=== PATIENT | male | born 1945 | race Caucasian/White ===

== ENCOUNTER 2019-08-29 11:28 | Emergency (ER) | payer OTHER ==
[~2019-08-29] VITALS: Ht 172.7 cm; Wt 124.7 kg
[2019-08-29 11:58] LABS: BASOPHILS ABSOLUTE AUTO 0.02 K/mm3 (0.00-0.23); BASOPHILS PERCENT AUTO 1 % (0-2); EOSINOPHILS ABSOLUTE AUTO 0.06 K/mm3 (0.00-0.68); EOSINOPHILS PERCENT AUTO 2 % (0-6); Hematocrit 37.9 % (37.0-53.0); Hemoglobin 12.5 g/dL (13.5-17.5); IMMATURE GRAN ABSOLUTE AUTO 0.01 K/mm3 (0.00-0.10); IMMATURE GRAN PERCENT AUTO 0 % (0-1); LYMPHOCYTES ABSOLUTE AUTO 0.19 K/mm3 (0.84-5.20); LYMPHOCYTES PERCENT AUTO 5 % (21-46); MONOCYTES ABSOLUTE AUTO 0.44 K/mm3 (0.16-1.47); MONOCYTES PERCENT AUTO 11 % (4-13); Mean Corpuscular HGB 30.3 pg (26.0-34.0); Mean Corpuscular Volume 92 fL (80-100); Mean Platelet Volume 8.5 fL (9.1-12.4); NEUTROPHILS ABSOLUTE AUTO 3.41 K/mm3 (1.96-9.15); NEUTROPHILS PERCENT AUTO 83 % (41-73); Platelet Count 194 K/mm3 (150-400); RDW Coefficient Variation 13.4 % (11.7-14.2); Red Blood Cell Count 4.13 M/mm3 (4.30-5.90); White Blood Cell Count 4.13 K/mm3 (4.00-11.30)
[2019-08-29 12:21] LABS: Anion Gap 8 mmol/L (6-16); Blood Urea Nitrogen 31 mg/dL (8-24); Bun/Creatinine Ratio 28.7 (12.0-20.0); CO2, Blood 24 mmol/L (21-32); Calcium, Blood 9.1 mg/dL (8.5-10.1); Chloride, Blood 107 mmol/L (98-108); Creatinine, Blood 1.08 mg/dL (0.60-1.20); Glomerular Filtration Rate >60 (60-); Glucose, Blood 104 mg/dL (70-99); Potassium, Blood 4.2 mmol/L (3.5-5.5); Sodium, Blood 139 mmol/L (136-145); Troponin I <0.015 ng/mL (0.000-0.040)
[2019-08-29 13:26] LABS: Source, Urine Clean Catch
[2019-08-29 13:38] LABS: Bilirubin, Urine Neg (Neg); Blood, Urine Neg (Neg); Glucose Qualitative, Urine Neg (Neg); Ketones, Urine Neg (Neg); Leukocyte Esterase, Urine Neg (Neg); Nitrite, Urine Neg (Neg); Protein, Urine Neg (Neg); Specific Gravity, Urine 1.025 (1.003-1.022); Urobilinogen, Urine NORM (Normal)
[2019-08-29 13:43] LABS: Appearance, Urine Clear (Clear); Color, Urine Yellow (P-Yellow)
== END 2019-08-29 14:47 | disposition home or self-care (01) ==
LOC: ER 11:28
PROVIDERS: Emergency Medicine
DX: E86.0 Dehydration (principal); C61 Malignant neoplasm of prostate; R19.7 Diarrhea, unspecified; R55 Syncope and collapse; Z87.891 Personal history of nicotine dependence
CPT/HCPCS: 74022; 80048; 81003; 84484; 85025; 93005; 93010; 96360; 96361; 99285-25; J7030

== ENCOUNTER 2022-01-02 06:06 | Day surgery (SDC) | payer OTHER ==
[~2022-01-02] VITALS: Ht 172.7 cm; Wt 142.1 kg
[2022-01-02] MEDS ORDERED: THERA-D2000 UNIT PO (07:03)
[2022-01-02] MEDS ORDERED: TAMS.4ER PO (07:04)
[2022-01-02] MEDS ORDERED: NAPR500 PO (07:04)
[2022-01-02] MEDS ORDERED: Robaxin750 MG PO (07:05)
[2022-01-02 15:08] LABS: Performing Lab MI PROFILE; Test Name FLOWCYTOMETRY
== END 2022-01-02 09:36 | disposition home or self-care (01) ==
LOC: ORSCSDS 06:06
PROVIDERS: Surgery
PROC: 07B60ZX Excision of Left Axillary Lymphatic, Open Approach, Diagnostic (ICD-10-PCS; principal; 2022-01-02 07:30)
DX: C77.0 Secondary and unspecified malignant neoplasm of lymph nodes of head, face and neck (principal); C61 Malignant neoplasm of prostate; I10 Essential (primary) hypertension; J44.9 Chronic obstructive pulmonary disease, unspecified; G47.33 Obstructive sleep apnea (adult) (pediatric); Z87.891 Personal history of nicotine dependence; F43.10 Post-traumatic stress disorder, unspecified; Z79.899 Other long term (current) drug therapy; E66.01 Morbid (severe) obesity due to excess calories; Z68.42 Body mass index [BMI] 45.0-49.9, adult
CPT/HCPCS: 88184; 88185; 88305; 88341; 88342; A9270; J0330; J1100; J1885; J2310; J2405; J2704; J3010

== ENCOUNTER → 2022-09-14 | Outpatient (CLI) | payer OTHER ==
[~2022-09-14] MED LIST: NAPR500 PO; Robaxin750 MG PO; TAMS.4ER PO; THERA-D2000 UNIT PO
[2022-09-14 12:51] LABS: Source, Urine Clean Catch
[2022-09-14 13:21] LABS: Appearance, Urine Cloudy (Clear); Bilirubin, Urine Neg (Neg); Blood, Urine 4+ (Neg); Color, Urine Yellow (P-Yellow); Glucose Qualitative, Urine Neg (Neg); Ketones, Urine Neg (Neg); Leukocyte Esterase, Urine 3+ (Neg); Nitrite, Urine Pos (Neg); Protein, Urine 3+ (Neg); Urobilinogen, Urine NORM (Normal)
[2022-09-14 13:41] LABS: White Blood Cells, Urine TNTC /hpf (0-5)
[2022-09-14 13:42] LABS: Squamous Epithelial Cells Rare /hpf (Few)
[2022-09-14 13:43] LABS: Bacteria Many /hpf
== END | disposition home or self-care (01) ==
LOC: LAB 12:17 → LAB SHORT 12:17
PROVIDERS: Radiology Therapeutic Radiology
DX: C61 Malignant neoplasm of prostate (principal)
CPT/HCPCS: 81001; 87086

== ENCOUNTER → 2023-05-02 | Outpatient (CLI) | payer OTHER | END | disposition home or self-care (01) | LOC: LAB 12:30 → LAB SHORT 12:30 → EDSTATUS 05-02 11:10 → LAB FUT 05-02 11:10 | DX: R19.7 Diarrhea, unspecified (principal) | CPT/HCPCS: 87338 ==

== ENCOUNTER 2023-07-13 22:39 | Inpatient (IN) | payer OTHER ==
[~2023-07-13] VITALS: Ht 172.7 cm; Wt 112.1 kg
[~2023-07-13 22:39] MED LIST changes: +CEFP200 PO; +CEPH500 PO; +ONDA4ODT MM
[2023-07-13 23:37] LABS: BASOPHILS ABSOLUTE AUTO 0.02 K/mm3 (0.00-0.23); BASOPHILS PERCENT AUTO 0 % (0-2); EOSINOPHILS PERCENT AUTO 0 % (0-6); Hematocrit 31.4 % (37.0-53.0); Hemoglobin 10.6 g/dL (13.5-17.5); IMMATURE GRAN ABSOLUTE AUTO 0.04 K/mm3 (0.00-0.10); IMMATURE GRAN PERCENT AUTO 0 % (0-1); LYMPHOCYTES ABSOLUTE AUTO 0.34 K/mm3 (0.84-5.20); LYMPHOCYTES PERCENT AUTO 3 % (21-46); MONOCYTES ABSOLUTE AUTO 0.55 K/mm3 (0.16-1.47); MONOCYTES PERCENT AUTO 5 % (4-13); Mean Corpuscular HGB Conc 33.8 g/dL (31.5-36.5); Mean Corpuscular Volume 86 fL (80-100); NEUTROPHILS ABSOLUTE AUTO 9.67 K/mm3 (1.96-9.15); NEUTROPHILS PERCENT AUTO 91 % (41-73); Platelet Count 256 K/mm3 (150-400); RDW Coefficient Variation 13.8 % (11.7-14.2); RDW Standard Deviation 43.4 fL (35.1-46.3); Red Blood Cell Count 3.66 M/mm3 (4.30-5.90); White Blood Cell Count 10.62 K/mm3 (4.00-11.30)
[2023-07-13 23:53] LABS: Albumin, Blood 2.3 g/dL (3.4-5.0); Albumin/Globulin Ratio 0.6 (0.8-1.8); Bilirubin, Total 0.4 mg/dL (0.1-1.0); Bun/Creatinine Ratio 11.7 (12.0-20.0); Calcium, Blood 8.2 mg/dL (8.5-10.1); Creatinine, Blood 2.06 mg/dL (0.60-1.20); Globulin, Blood 4.1 g/dL (2.2-4.0); Potassium, Blood 3.8 mmol/L (3.5-5.5); Total Protein, Blood 6.4 g/dL (6.4-8.2)
--- NOTE | 2023-07-14 01:30 | NUR ---
ADMIT NOTE; PT ARRIVES FROM THE ED VIA GURNEY. THE PT IS AXO X4 AND IS ABLE TO STAND AND PIVOT FROM THE GURNEY TO THE HOSPITAL BED W/ A ONE ASSIST. THE PT IS OVERALL WEAK PRESENTLY. THE PT ENDORSES OCCASIONAL BLADDER SPASMS WELL LOWER ABD PAIN BELIEVED TO BE ASSOCIATED W/ THE PT EXPERIENCING FREUQENT EPISODES OF DIARRHEA. THE PT OTHERWISE DENIES ANY PAIN, CHEST PAIN/PRESSURE, SOB OR N/V. THE PT IS ABLE TO REST COMFORTABLY IN BED WITH THE BED IN THE LOWEST POSITION AND THE CALL LIGHT AT BEDSIDE. PT EDUCATED ON POTENTIAL FIRE IGNITION SOURCES, PT DENIES HAVING ANY POSSIBLE FIRE IGNITION SOURCES IN POSSESSION PRESENTLY.
[2023-07-14 01:33] VITALS: BP 115/77
[2023-07-14] MEDS ORDERED: AMIT25 PO (05:10)
[2023-07-14] MEDS ORDERED: ASPI325EC PO (05:13)
[2023-07-14] MEDS ORDERED: ERLEADA60 MG PO (05:13)
[2023-07-14] MEDS ORDERED: CELE200 PO (05:14)
[2023-07-14] MEDS ORDERED: CHOLESTYRAMI239.4 G1 PO (05:15)
[2023-07-14] MEDS ORDERED: LACT PO (05:16)
[2023-07-14] MEDS ORDERED: DICLOFENAC SOD100 G1 TOP (05:16)
[2023-07-14] MEDS ORDERED: LIDO700A20 TOP (05:17)
[2023-07-14 05:21] VITALS: BP 125/87
[2023-07-14] MEDS ORDERED: MAGNESIUM OXID400 M2 PO (05:21)
[2023-07-14] MEDS ORDERED: MEGE40T PO (05:23)
[2023-07-14] MEDS ORDERED: SOLIFENACIN SUC10 MG PO (05:25)
[2023-07-14] MEDS ORDERED: SULFAMETHOXAZO1 EAC1 PO (05:26)
[2023-07-14] MEDS ORDERED: Sanctura20 MG PO (05:27)
--- NOTE | 2023-07-14 05:43 | NUR ---
SHIFT SUMMARY; NO ACUTE CHANGES OVERNIGHT. THE PT IS AXO X4 AND A 1 ASSIST TO BSC. ALTHOUGH PRESENTLY THE PT IS INCONTINENT. THE PT DENIES ANY PAIN PRESENTLY. THE PT ALSO DENIES ANY SOB, CHEST PAIN/PRESSURE OR N/V. THE PT DOES HAVE NS RUNNING AT 75 MLS/HR. CURRENTLY THE PT IS RESTING IN BED WITH THE BED IN THE LOWEST POSITION AND THE CALL LIGHT AT BEDSIDE. FIRE SAFETY MAINTAINED T/O THE NIGHT.
[2023-07-14 08:47] VITALS: BP 114/78
[2023-07-14 09:33] LABS: BASOPHILS ABSOLUTE AUTO 0.01 K/mm3 (0.00-0.23); BASOPHILS PERCENT AUTO 0 % (0-2); EOSINOPHILS PERCENT AUTO 0 % (0-6); Hematocrit 30.1 % (37.0-53.0); Hemoglobin 10.2 g/dL (13.5-17.5); IMMATURE GRAN ABSOLUTE AUTO 0.02 K/mm3 (0.00-0.10); IMMATURE GRAN PERCENT AUTO 0 % (0-1); LYMPHOCYTES ABSOLUTE AUTO 0.25 K/mm3 (0.84-5.20); LYMPHOCYTES PERCENT AUTO 3 % (21-46); MONOCYTES ABSOLUTE AUTO 0.34 K/mm3 (0.16-1.47); MONOCYTES PERCENT AUTO 4 % (4-13); Mean Corpuscular HGB 29.2 pg (26.0-34.0); Mean Corpuscular HGB Conc 33.9 g/dL (31.5-36.5); Mean Corpuscular Volume 86 fL (80-100); Mean Platelet Volume 9.4 fL (9.1-12.4); NEUTROPHILS ABSOLUTE AUTO 7.57 K/mm3 (1.96-9.15); NEUTROPHILS PERCENT AUTO 92 % (41-73); Platelet Count 208 K/mm3 (150-400); RDW Coefficient Variation 13.8 % (11.7-14.2); RDW Standard Deviation 43.6 fL (35.1-46.3); Red Blood Cell Count 3.49 M/mm3 (4.30-5.90); White Blood Cell Count 8.19 K/mm3 (4.00-11.30)
[2023-07-14 09:55] LABS: BAND PERCENT MAN 1 % (0-8); BASOPHILS PERCENT MAN 0 % (0-2); EOSINOPHILS PERCENT MAN 0 % (0-6); LYMPHOCYTES ABSOLUTE MAN 0.32 K/mm3 (0.84-5.20); LYMPHOCYTES PERCENT MAN 4 % (21-46); MONOCYTES ABSOLUTE MAN 0.49 K/mm3 (0.16-1.47); MONOCYTES PERCENT MAN 6 % (4-13); NEUTROPHILS ABSOLUTE MAN 7.37 K/mm3 (1.96-9.15); SEG NEUTROPHILS PERCENT MAN 89 % (41-73); TOTAL CELLS COUNTED 100
[2023-07-14 10:22] LABS: Albumin, Blood 2.3 g/dL (3.4-5.0); Albumin/Globulin Ratio 0.6 (0.8-1.8); Bilirubin, Total 0.4 mg/dL (0.1-1.0); Bun/Creatinine Ratio 11.6 (12.0-20.0); Creatinine, Blood 2.07 mg/dL (0.60-1.20); Globulin, Blood 3.8 g/dL (2.2-4.0); Potassium, Blood 3.4 mmol/L (3.5-5.5); Total Protein, Blood 6.1 g/dL (6.4-8.2)
[2023-07-14 12:41] LABS: Adenovirus F 40/41 Not Detected (NOT DETECT); Astrovirus Not Detected (NOT DETECT); Campylobacter Sp Not Detected (NOT DETECT); Cryptosporidium Not Detected (NOT DETECT); Cyclospora Cayetanensis Not Detected (NOT DETECT); E. Coli O157 Not Detected (NOT DETECT); Entamoeba Histolytica Not Detected (NOT DETECT); Enteroaggregative E. coli-EAEC Not Detected (NOT DETECT); Enteropathogenic E. coli-EPEC Not Detected (NOT DETECT); Enterotoxigenic E. coli-ETEC Not Detected (NOT DETECT); Giardia Lamblia Not Detected (NOT DETECT); Norovirus GI/GII Not Detected (NOT DETECT); Plesiomonas Shigelloides Not Detected (NOT DETECT); Rotavirus A Not Detected (NOT DETECT); Salmonella Sp Not Detected (NOT DETECT); Sapovirus Not Detected (NOT DETECT); Shiga Toxin-prod E. coli-STEC Not Detected (NOT DETECT); Shigella/Enteroin E. coli-EIEC Not Detected (NOT DETECT); Vibrio Cholerae Not Detected (NOT DETECT); Vibrio Sp Not Detected (NOT DETECT); Yersinia Enterocolitica Not Detected (NOT DETECT)
[2023-07-14 15:07] LABS: Bun/Creatinine Ratio 11.4 (12.0-20.0); Calcium, Blood 8.4 mg/dL (8.5-10.1); Creatinine, Blood 2.1 mg/dL (0.60-1.20); Potassium, Blood 3.6 mmol/L (3.5-5.5)
[2023-07-14 15:36] VITALS: BP 145/81
--- NOTE | 2023-07-14 17:48 | NUR ---
SHIFT SUMMARY- FEVER IMPROVED IN AFTERNOON, MEDICATED PER EMAR. INTERMITTED VOMITING PER SHIFT X3, TREATED PER EMAR. DIARRHEA EVERY HOUR, + C-DIFF, CHANGE TO ISO. COMDOM CATH IN PLACE, DRAINING WELL, 700 OUT THIS SHIFT. A&O X4. WILL CONTINUE TO MONITOR. BED ALARMON. CALL LIGHT IN REACH.
[2023-07-14 20:20] VITALS: BP 101/54
[2023-07-15 03:22] VITALS: BP 145/85
--- NOTE | 2023-07-15 04:38 | NUR ---
SHIFT SUMMARY; NO ACUTE CHANGES OVERNIGHT. THE PT HAS BEEN SLEEPING FOR THE MAJORITY OF THE NIGHT. THE PT HAS BEEN BEDREST FOR THE NIGHT. THE PT IS STILL HAVING LOOSE STOOLS, BUT LESS FREQUENT. THE PT HAS A CONDOM CATH IN PLACE, IT IS PATENT AND DRAINING TO GRAVITY. THE PT DENIES ANY CHEST PAIN/PRESSURE, SOB, N/V OR PAIN THIS SHIFT. CURRENTLY THE PT IS SLEEPING IN BED WITH THE BED IN THE LOWEST POSITION AND THE CALL LIGHT AT BEDSIDE. PT REAMINS NPO ORDERED. FIRE SAFETY MAINTAINED T/O THE NIGHT.
[2023-07-15 08:21] LABS: Hematocrit 32.2 % (37.0-53.0); Hemoglobin 10.1 g/dL (13.5-17.5); Mean Corpuscular HGB 28.3 pg (26.0-34.0); Mean Corpuscular HGB Conc 31.4 g/dL (31.5-36.5); Mean Corpuscular Volume 90 fL (80-100); Mean Platelet Volume 9.7 fL (9.1-12.4); Platelet Count 218 K/mm3 (150-400); RDW Standard Deviation 46.5 fL (35.1-46.3); Red Blood Cell Count 3.57 M/mm3 (4.30-5.90); White Blood Cell Count 4.62 K/mm3 (4.00-11.30)
[2023-07-15 08:33] LABS: Bun/Creatinine Ratio 12.3 (12.0-20.0); Calcium, Blood 7.9 mg/dL (8.5-10.1); Creatinine, Blood 1.87 mg/dL (0.60-1.20); Potassium, Blood 3.6 mmol/L (3.5-5.5)
[2023-07-15 08:48] LABS: BAND PERCENT MAN 6 % (0-8); BASOPHILS PERCENT MAN 0 % (0-2); EOSINOPHILS PERCENT MAN 0 % (0-6); LYMPHOCYTES PERCENT MAN 11 % (21-46); METAMYELOCYTE ABSOLUTE MAN 0.04 K/mm3 (0.00-0.00); METAMYELOCYTE PERCENT MAN 1 % (0-0); MONOCYTES ABSOLUTE MAN 0.13 K/mm3 (0.16-1.47); MONOCYTES PERCENT MAN 3 % (4-13); NEUTROPHILS ABSOLUTE MAN 3.92 K/mm3 (1.96-9.15); SEG NEUTROPHILS PERCENT MAN 79 % (41-73); TOTAL CELLS COUNTED 100
[2023-07-15 08:59] VITALS: BP 139/89
--- NOTE | 2023-07-15 11:33 | NUR ---
REQUEST SHEET FAXED TO [facility] FOR CT RECORDS PER DR. GERMAIN @[id number]
[2023-07-15 14:54] VITALS: BP 113/73
--- NOTE | 2023-07-15 19:50 | NUR ---
SHIFT SUMMARY: PT A&O X4. PT PLEASANT AND COOPERATIVE WITH CARE. PT REMAINS TO HAVE RUNNY DIARRHEA BUT IS BEGINNING TO BECOME FORMED. BANANA FLAKES TOLERATED. NS GIVEN PER EMAR. PT BROUGHT HOME MEDICATIONS. CANCER MED GIVEN AND LABELED. CONDOM CATH WORKING WELL WITH NEW IN PLACE. [facility] FAXED TO REQUEST [facility] PER DR. GERMAIN. NO FAX TO THIS HOSPITAL AT THIS TIME. NPO CHANGED TO REGULAR DIET THIS AM. PT VERY APPRECIATIVE. CALL LIGHT IN REACH. BED IN LOWEST POSITION. REPORT GIVEN TO ONCOMING RN.
[2023-07-15 20:10] VITALS: BP 123/83
--- NOTE | 2023-07-16 04:10 | NUR ---
SHIFT SUMMARY PATIENT ALERT, PLEASANT, COOPERATIVE. DENIES PAIN NOR DISCOMFORT. PIV TO LEFT AC, PATENT, INFUSING NS@125mL/HR. CONDOM CATH IN PLACE, DRAINING CLEAR YELLOW URINE. HAD SOFT, FORMED BM. NO ACUTE CHANGES NOTED OVERNIGHT. BED IN LOW POSITION, CALL LIGHT WITHIN REACH.
[2023-07-16 05:36] VITALS: BP 130/86
[2023-07-16 07:15] VITALS: BP 126/78
[2023-07-16 08:05] LABS: Hematocrit 29.8 % (37.0-53.0); Hemoglobin 9.5 g/dL (13.5-17.5); Mean Corpuscular HGB 28.3 pg (26.0-34.0); Mean Corpuscular HGB Conc 31.9 g/dL (31.5-36.5); Mean Corpuscular Volume 89 fL (80-100); Mean Platelet Volume 9.2 fL (9.1-12.4); Platelet Count 195 K/mm3 (150-400); RDW Coefficient Variation 14.1 % (11.7-14.2); RDW Standard Deviation 45.6 fL (35.1-46.3); Red Blood Cell Count 3.36 M/mm3 (4.30-5.90); White Blood Cell Count 4.06 K/mm3 (4.00-11.30)
[2023-07-16 08:26] LABS: BAND PERCENT MAN 5 % (0-8); BASOPHILS PERCENT MAN 0 % (0-2); EOSINOPHILS PERCENT MAN 0 % (0-6); LYMPHOCYTES ABSOLUTE MAN 0.16 K/mm3 (0.84-5.20); LYMPHOCYTES PERCENT MAN 4 % (21-46); METAMYELOCYTE ABSOLUTE MAN 0.16 K/mm3 (0.00-0.00); METAMYELOCYTE PERCENT MAN 4 % (0-0); MONOCYTES ABSOLUTE MAN 0.16 K/mm3 (0.16-1.47); MONOCYTES PERCENT MAN 4 % (4-13); NEUTROPHILS ABSOLUTE MAN 3.57 K/mm3 (1.96-9.15); SEG NEUTROPHILS PERCENT MAN 83 % (41-73); TOTAL CELLS COUNTED 100
[2023-07-16 08:29] LABS: Anion Gap 7 mmol/L (6-16); Blood Urea Nitrogen 19 mg/dL (8-24); Bun/Creatinine Ratio 11.9 (12.0-20.0); CO2, Blood 20 mmol/L (21-32); Calcium, Blood 7.9 mg/dL (8.5-10.1); Chloride, Blood 116 mmol/L (98-108); Glomerular Filtration Rate 44 (60-); Glucose, Blood 113 mg/dL (70-99); Phosphorus, Blood 2.6 mg/dL (2.5-4.9); Potassium, Blood 3.2 mmol/L (3.5-5.5); Sodium, Blood 143 mmol/L (136-145)
[2023-07-16 15:19] VITALS: BP 131/89
--- NOTE | 2023-07-16 17:30 | NUR ---
PT DISCHARGE REVIEWED WITH PT AND SPOUSE. HE VERBALIZED UNDERSTANDING MEDS AND INST. NO TELE. IV REMOVED BY AIDE. PT WHEELED TO DOOR BY AIDE AT 1730
== END 2023-07-16 17:31 | disposition home health service (06) | DRG 872 ==
LOC: ER 22:39 → MEDS 23:46
PROVIDERS: Family Medicine; Internal Medicine; Student in an Organized Health Care Education/Training Program; ADMIT Internal Medicine
PROC: 3E03329 Introduction of Other Anti-infective into Peripheral Vein, Percutaneous Approach (ICD-10-PCS; principal; 2023-07-14)
PROC: 0T9B70Z Drainage of Bladder with Drainage Device, Via Natural or Artificial Opening (ICD-10-PCS; 2023-07-14)
DX: A41.9 Sepsis, unspecified organism (principal); N13.6 Pyonephrosis; N17.9 Acute kidney failure, unspecified; N18.2 Chronic kidney disease, stage 2 (mild); I12.9 Hypertensive chronic kidney disease with stage 1 through stage 4 chronic kidney disease, or unspecified chronic kidney disease; E78.5 Hyperlipidemia, unspecified; M54.50 Low back pain, unspecified; E86.0 Dehydration; G47.30 Sleep apnea, unspecified; F43.10 Post-traumatic stress disorder, unspecified; J44.9 Chronic obstructive pulmonary disease, unspecified; N32.89 Other specified disorders of bladder; M19.90 Unspecified osteoarthritis, unspecified site; Z85.46 Personal history of malignant neoplasm of prostate; Z79.899 Other long term (current) drug therapy; Z86.19 Personal history of other infectious and parasitic diseases
CPT/HCPCS: 36415; 76770; 80048; 80053; 80069; 83605; 83880; 85025; 87040; 87324; 87507; 96374; 96375; 97112; 97116; 97161; 99285-25; A9270; J0696; J1644; J2405; J3010; J3480; J7030

== ENCOUNTER 2023-09-01 13:28 | Inpatient (IN) | payer OTHER ==
[~2023-09-01] VITALS: Ht 172.7 cm; Wt 107.9 kg
[~2023-09-01 13:28] MED LIST changes: +AMIT25 PO; +ASPI325EC PO; +CELE200 PO; +CHOLESTYRAMI239.4 G1 PO; +DICLOFENAC SOD100 G1 TOP; +ERLEADA60 MG PO; +LACT PO; +LIDO700A20 TOP; +MAGNESIUM OXID400 M2 PO; +MEGE40T PO; +SOLIFENACIN SUC10 MG PO; +SULFAMETHOXAZO1 EAC1 PO; +Sanctura20 MG PO
[2023-09-01 15:42] LABS: Source, Urine Foley catheter
[2023-09-01 16:07] LABS: Appearance, Urine Cloudy (Clear); Bilirubin, Urine Neg (Neg); Blood, Urine 5+ (Neg); Color, Urine Amber (P-Yellow); Glucose Qualitative, Urine Neg (Neg); Ketones, Urine Neg (Neg); Leukocyte Esterase, Urine 3+ (Neg); Nitrite, Urine Pos (Neg); Protein, Urine 3+ (Neg); Specific Gravity, Urine 1.015 (1.003-1.022); Urobilinogen, Urine NORM (Normal)
[2023-09-01 16:13] LABS: Bun/Creatinine Ratio 12.3 (12.0-20.0); Calcium, Blood 9.6 mg/dL (8.5-10.1); Creatinine, Blood 3.97 mg/dL (0.60-1.20); Magnesium, Blood 2.6 mg/dL (1.6-2.4)
[2023-09-01 16:35] LABS: White Blood Cells, Urine TNTC /hpf (0-5)
[2023-09-01 16:36] LABS: Bacteria Many /hpf; Red Blood Cells, Urine 50-100 /hpf (0-2)
[2023-09-01 16:39] LABS: Squamous Epithelial Cells Not Seen /hpf (Few)
[2023-09-01 19:17] VITALS: BP 112/97
[2023-09-02 05:13] VITALS: BP 119/80
[2023-09-02 06:06] LABS: Bun/Creatinine Ratio 12.1 (12.0-20.0); Creatinine, Blood 4.29 mg/dL (0.60-1.20); Potassium, Blood 5.1 mmol/L (3.5-5.5)
--- NOTE | 2023-09-02 06:18 | NUR ---
PT CAME TO FLOOR ON IV FLUIDS AND WITH A GARCIA CATHETER THAT WAS INSERTED IN THE ED. PT HAS A HX OF URINARY RETENTION AND PROSTATE CANCER. A CAUDE CATHETER WAS USED TO INSERT THE CATHETER IN THE ED. PT DOES HAVE URINE THAT LEAKS AROUND HIS CATHETER AND HIS URINE HAS MAINTAINED A TEA COLOR THROUGHOUT THE SHIFT, EVEN WITH PO INTAKE OF WATER AND LR RUNNING THROUGH THE PT'S IV. PT WAS NAUSEOUS WHEN HE CAME TO THE FLOOR, BUT THIS RESOLVED WITH ZOFRAN. PT STATES HE HAS A HX OF FALLING AND REPORTS SOME WEAKNESS IN HIS BLE.
[2023-09-02 07:41] VITALS: BP 110/86
--- NOTE | 2023-09-02 11:33 | NUR ---
"Spiritual Care | Pt. request Pt. is awake in bed and welcomes my visit. Spouse is present. Facilitated a lengthy life review at times considered matters of thao and belief. 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 Pt. is unsettled by his diagnosis but displays evidence of trusting God in spite of his circumstances. Pt. verbalized gratitude for the spiritual care visit and welcomed this deck steward to return."
[2023-09-02] MEDS ORDERED: MEGE40T PO (11:41)
[2023-09-02] MEDS ORDERED: AMIT25 PO (11:41)
[2023-09-02 14:46] VITALS: BP 117/87
--- NOTE | 2023-09-02 17:59 | NUR ---
SUMMARY PT SAT UP IN CHAIR THIS AM. HAS RESTED IN BED SINCE MID SHIFT, REPOSITIONING SELF. PT BECAME NAUSEATED AND HAD MULTIPLE EPISODES EMESIS. MEDICATED PER ORDERS. HAS NOT HAD EMESIS FOR PAST TWO HOURS. DECLINED DINNER TRAY. IV FLUIDS INFUSING PER ORDERS. PT'S GARCIA PRODUCING CLOUDY HUEY URINE. CALL LIGHT IN REACH.
[2023-09-02 19:33] VITALS: BP 138/91
--- NOTE | 2023-09-03 05:28 | NUR ---
SHIFT SUMMARY NOC. PT A/OX4 THIS SHIFT. PT TOLERATED PO INTAKE OF JELLO. NO VOMITING OR NAUSEA THIS SHIFT. PT ON TELEMETRY AND WAS NSR. GARCIA CATHETER IS INTACT, DRAINING TO GRAVITY AND BELOW GRAVITY. PT RESTED WELL THROUGHOUT THE NIGHT WITH EYES CLOSED AND CALL LIGHT IN REACH.
[2023-09-03 05:29] VITALS: BP 133/82
[2023-09-03 07:09] VITALS: BP 119/77
[2023-09-03 08:30] LABS: Bun/Creatinine Ratio 12.2 (12.0-20.0); Calcium, Blood 9.1 mg/dL (8.5-10.1); Creatinine, Blood 3.68 mg/dL (0.60-1.20); Potassium, Blood 4.5 mmol/L (3.5-5.5)
[2023-09-03] MEDS ORDERED: TAMS.4ER PO (10:20)
[2023-09-03] MEDS ORDERED: CEFU250T47 PO (10:20)
[2023-09-03] MEDS ORDERED: Sanctura20 MG PO (10:20)
--- NOTE | 2023-09-03 10:46 | NUR ---
DISCHARGE NOTE: PATIENT AND PATIENTS WERE EDUCATED ON DISCHARGE INSTRUCTIONS. BOTH VERBALIZED UNDERSTANDING OF INSTRUCTIONS AND HAD NO FURTHER QUESTIONS AT THIS TIME. PATIENTS PERSCRIPTIONS WERE FAXED TO THE [facility] PER PATIENTS REQUEST. IV WAS TAKEN OUT AND WNL. PATIENT WAS ALSO EDUCATED ON GARCIA CLEANING/MANAGEMENT WITH PRINTOUT EDUCATION. PATIENT VERBALIZED UNDERSTANDING OF GARCIA EDUCATION. GARCIA IS DRAINING PER GRAVITY WITH YELLOW URINE OUTPUT. PATIENT IS TOLERATING PO INTAKE. ALSO EDUCATED PATIENT ON A RENAL DIET FOR AT HOME WITH EDUCATION PRINTOUT. PATIENT AND VERBALIZED UNDERSTANDING OF EDUCATION WELL. PATIENT IS DRESSED AND HAS PERSONAL ITEMS IN THE ROOM GATHERED. PATIENT WAS ABLE TO AMBULATE TO THE WHEELCHAIR INDEP. PATIENT WAS WHEELCHAIRED OUT TO HIS WIFES CAR TO BE TAKEN HOME.
== END 2023-09-03 10:51 | disposition home or self-care (01) | DRG 683 ==
LOC: ER 13:28 → SURS 13:29 → ERHOLD 13:29 → ER 16:05 → SURS 18:50
PROVIDERS: Emergency Medicine; ADMIT Internal Medicine
PROC: 0T9B70Z Drainage of Bladder with Drainage Device, Via Natural or Artificial Opening (ICD-10-PCS; principal; 2023-09-02)
DX: N17.9 Acute kidney failure, unspecified (principal); N39.0 Urinary tract infection, site not specified; N18.30 Chronic kidney disease, stage 3 unspecified; E78.5 Hyperlipidemia, unspecified; E87.5 Hyperkalemia; B96.20 Unspecified Escherichia coli [E. coli] as the cause of diseases classified elsewhere; M54.50 Low back pain, unspecified; G89.29 Other chronic pain; F43.10 Post-traumatic stress disorder, unspecified; G47.33 Obstructive sleep apnea (adult) (pediatric); M19.90 Unspecified osteoarthritis, unspecified site; N13.30 Unspecified hydronephrosis; R33.9 Retention of urine, unspecified; Z87.891 Personal history of nicotine dependence; Z88.5 Allergy status to narcotic agent; Z88.8 Allergy status to other drugs, medicaments and biological substances; Z91.041 Radiographic dye allergy status; Z79.899 Other long term (current) drug therapy; Z85.46 Personal history of malignant neoplasm of prostate; Z79.82 Long term (current) use of aspirin; Z98.890 Other specified postprocedural states
CPT/HCPCS: 36415; 51702; 76770; 80048; 81001; 83735; 87077; 87086; 87186; 93005; 93010; 96361; 96361-59; 96365; 96372; 96374-59; 96375-59; 96376; 99285-25; A9270; G0378; J0696; J1644; J2405; J2765; J7030; J7120

== ENCOUNTER → 2023-09-17 | Outpatient (CLI) | payer OTHER ==
[~2023-09-17] MED LIST changes: +CEFU250T47 PO
[2023-09-17 19:47] LABS: Creatinine Urine 40.9 mg/dL (27.00-270.00); Microalbumin, Urine Quant. 62.4 mg/L (0.000-20.000); Protein, Urine Quantitative 28.1 mg/dL (0.0-11.9)
== END | disposition home or self-care (01) ==
LOC: LAB SHORT 09:30 → LAB 09:30
PROVIDERS: Internal Medicine Nephrology
DX: N18.30 Chronic kidney disease, stage 3 unspecified (principal); D63.1 Anemia in chronic kidney disease; N25.81 Secondary hyperparathyroidism of renal origin; E55.9 Vitamin D deficiency, unspecified; E78.00 Pure hypercholesterolemia, unspecified; D51.8 Other vitamin B12 deficiency anemias; D52.8 Other folate deficiency anemias; D50.9 Iron deficiency anemia, unspecified; E83.51 Hypocalcemia; R76.9 Abnormal immunological finding in serum, unspecified; R94.5 Abnormal results of liver function studies; R94.6 Abnormal results of thyroid function studies
CPT/HCPCS: 81050; 82043; 82570; 84156

== ENCOUNTER → 2023-10-05 | Outpatient (CLI) | payer OTHER | END | disposition home or self-care (01) | LOC: LAB 12:00 → LAB SHORT 12:00 | DX: N39.0 Urinary tract infection, site not specified (principal) | CPT/HCPCS: 87077; 87086; 87186 ==

== ENCOUNTER 2023-10-18 09:14 | Emergency (ER) | payer OTHER ==
[~2023-10-18] VITALS: Ht 172.7 cm; Wt 108.9 kg
[2023-10-18 10:15] LABS: BASOPHILS ABSOLUTE AUTO 0.02 K/mm3 (0.00-0.23); BASOPHILS PERCENT AUTO 1 % (0-2); EOSINOPHILS ABSOLUTE AUTO 0.24 K/mm3 (0.00-0.68); EOSINOPHILS PERCENT AUTO 5 % (0-6); Hematocrit 37.5 % (37.0-53.0); Hemoglobin 12.4 g/dL (13.5-17.5); IMMATURE GRAN PERCENT AUTO 0 % (0-1); LYMPHOCYTES ABSOLUTE AUTO 0.93 K/mm3 (0.84-5.20); LYMPHOCYTES PERCENT AUTO 21 % (21-46); MONOCYTES PERCENT AUTO 9 % (4-13); Mean Corpuscular HGB 29.9 pg (26.0-34.0); Mean Corpuscular HGB Conc 33.1 g/dL (31.5-36.5); Mean Corpuscular Volume 90 fL (80-100); Mean Platelet Volume 8.5 fL (9.1-12.4); NEUTROPHILS ABSOLUTE AUTO 2.84 K/mm3 (1.96-9.15); NEUTROPHILS PERCENT AUTO 64 % (41-73); Platelet Count 344 K/mm3 (150-400); RDW Coefficient Variation 14.2 % (11.7-14.2); Red Blood Cell Count 4.15 M/mm3 (4.30-5.90); White Blood Cell Count 4.43 K/mm3 (4.00-11.30)
[2023-10-18 10:26] LABS: Source, Urine Foley catheter
[2023-10-18 10:40] LABS: Appearance, Urine Bloody (Clear); Bilirubin, Urine Neg (Neg); Blood, Urine 5+ (Neg); Color, Urine Red (P-Yellow); Glucose Qualitative, Urine Neg (Neg); Ketones, Urine Neg (Neg); Leukocyte Esterase, Urine Neg (Neg); Nitrite, Urine Neg (Neg); Protein, Urine 4+ (Neg); Urobilinogen, Urine NORM (Normal); pH, Urine 6.5 (5.0-8.0)
[2023-10-18 10:45] LABS: Albumin, Blood 3.3 g/dL (3.4-5.0); Albumin/Globulin Ratio 0.8 (0.8-1.8); Bilirubin, Total 0.2 mg/dL (0.1-1.0); Bun/Creatinine Ratio 15.3 (12.0-20.0); Calcium, Blood 9.4 mg/dL (8.5-10.1); Creatinine, Blood 1.7 mg/dL (0.60-1.20); Globulin, Blood 4.3 g/dL (2.2-4.0); Potassium, Blood 4.2 mmol/L (3.5-5.5); Total Protein, Blood 7.6 g/dL (6.4-8.2)
[2023-10-18 10:53] LABS: Red Blood Cells, Urine TNTC /hpf (0-2); Squamous Epithelial Cells Rare /hpf (Few)
[2023-10-18 10:54] LABS: Bacteria Few /hpf
[2023-10-18 12:30] VITALS: BP 118/78
== END 2023-10-18 12:30 | disposition home or self-care (01) ==
LOC: ER 09:14
PROVIDERS: Emergency Medicine
DX: T83.83XA Hemorrhage due to genitourinary prosthetic devices, implants and grafts, initial encounter (principal); C61 Malignant neoplasm of prostate; I12.9 Hypertensive chronic kidney disease with stage 1 through stage 4 chronic kidney disease, or unspecified chronic kidney disease; N18.9 Chronic kidney disease, unspecified; E78.5 Hyperlipidemia, unspecified; J44.9 Chronic obstructive pulmonary disease, unspecified; G47.33 Obstructive sleep apnea (adult) (pediatric); M19.90 Unspecified osteoarthritis, unspecified site; F43.10 Post-traumatic stress disorder, unspecified; Z87.891 Personal history of nicotine dependence; Z79.82 Long term (current) use of aspirin; Z79.899 Other long term (current) drug therapy
CPT/HCPCS: 51702; 69200; 80053; 81001; 85025; 87086; 99283-25

== ENCOUNTER → 2023-10-29 | Outpatient (CLI) | payer OTHER ==
[2023-10-29 14:18] LABS: Source, Urine Clean Catch
[2023-10-29 18:17] LABS: Appearance, Urine Hazy (Clear); Bilirubin, Urine Neg (Neg); Blood, Urine 5+ (Neg); Color, Urine Yellow (P-Yellow); Glucose Qualitative, Urine 1+ (Neg); Ketones, Urine Neg (Neg); Leukocyte Esterase, Urine 3+ (Neg); Nitrite, Urine Neg (Neg); Protein, Urine 2+ (Neg); Specific Gravity, Urine 1.015 (1.003-1.022); Urobilinogen, Urine NORM (Normal)
[2023-10-29 19:21] LABS: Red Blood Cells, Urine TNTC /hpf (0-2)
[2023-10-29 19:22] LABS: Bacteria Mod /hpf; Squamous Epithelial Cells Not Seen /hpf (Few)
== END ==
LOC: LAB SHORT 14:16 → LAB 14:16
PROVIDERS: Urology Female Pelvic Medicine and Reconstructive Surgery
DX: N39.0 Urinary tract infection, site not specified (principal)
CPT/HCPCS: 81001; 87086

== ENCOUNTER 2024-12-17 17:08 | Emergency (ER) | payer OTHER ==
[~2024-12-17] VITALS: Ht 170.2 cm; Wt 114.3 kg
[~2024-12-17 17:08] MED LIST changes: +CAPSAICIN60 G1 TOP; +Diazepam5 MG PO; +FOLI1 PO; +HYDACE10B PO; +HYDROCODONE-AC1 EA19 PO; +SODBIC650 PO; +Voltaren100 GM TOP
[2024-12-17 17:39] LABS: BASOPHILS ABSOLUTE AUTO 0.03 K/mm3 (0.00-0.23); BASOPHILS PERCENT AUTO 0 % (0-2); EOSINOPHILS ABSOLUTE AUTO 0.22 K/mm3 (0.00-0.68); EOSINOPHILS PERCENT AUTO 2 % (0-6); Hematocrit 41.5 % (37.0-53.0); Hemoglobin 13.4 g/dL (13.5-17.5); IMMATURE GRAN ABSOLUTE AUTO 0.03 K/mm3 (0.00-0.10); IMMATURE GRAN PERCENT AUTO 0 % (0-1); LYMPHOCYTES ABSOLUTE AUTO 0.78 K/mm3 (0.84-5.20); LYMPHOCYTES PERCENT AUTO 7 % (21-46); MONOCYTES ABSOLUTE AUTO 0.63 K/mm3 (0.16-1.47); MONOCYTES PERCENT AUTO 6 % (4-13); Mean Corpuscular HGB 28.6 pg (26.0-34.0); Mean Corpuscular HGB Conc 32.3 g/dL (31.5-36.5); Mean Corpuscular Volume 89 fL (80-100); Mean Platelet Volume 8.6 fL (9.1-12.4); NEUTROPHILS ABSOLUTE AUTO 8.96 K/mm3 (1.96-9.15); NEUTROPHILS PERCENT AUTO 84 % (41-73); Platelet Count 350 K/mm3 (150-400); RDW Coefficient Variation 14.6 % (11.7-14.2); Red Blood Cell Count 4.69 M/mm3 (4.30-5.90); White Blood Cell Count 10.65 K/mm3 (4.00-11.30)
[2024-12-17 18:00] LABS: Albumin, Blood 3.3 g/dL (3.4-5.0); Albumin/Globulin Ratio 0.7 (0.8-1.8); Bilirubin, Total 0.5 mg/dL (0.1-1.0); Bun/Creatinine Ratio 11.6 (12.0-20.0); Creatinine, Blood 1.73 mg/dL (0.60-1.20); Globulin, Blood 4.6 g/dL (2.2-4.0); Potassium, Blood 4.2 mmol/L (3.5-5.5); Total Protein, Blood 7.9 g/dL (6.4-8.2)
[2024-12-17] MEDS ORDERED: Metoclopramide HCl 5MG / ML 2ML Vial IV ONE (18:15)
[2024-12-17] MEDS ORDERED: Ketorolac Tromethamine 15mg Vial IV ONE (18:15)
[2024-12-17] MEDS ORDERED: Lactated Ringer's 1,000 ML IV ONE (18:15)
[2024-12-17 18:41] LABS: Source, Urine Clean Catch
[2024-12-17] MEDS ORDERED: Norco 10-325 T1 EACH PO (18:41)
[2024-12-17] MEDS ORDERED: Methocarbamol750 MG PO (18:42)
[2024-12-17] MEDS ORDERED: DIAZ2 PO (18:42)
[2024-12-17 18:43] LABS: Appearance, Urine Hazy (Clear); Bilirubin, Urine Neg (Neg); Blood, Urine 5+ (Neg); Glucose Qualitative, Urine Neg (Neg); Ketones, Urine Neg (Neg); Leukocyte Esterase, Urine 3+ (Neg); Nitrite, Urine Neg (Neg); Protein, Urine 4+ (Neg); Specific Gravity, Urine 1.005 (1.003-1.022); Urobilinogen, Urine NORM (Normal)
[2024-12-17] MEDS ORDERED: CYCL10 (18:43)
[2024-12-17 18:55] LABS: Color, Urine Amber (P-Yellow)
[2024-12-17 18:56] LABS: Bacteria Many /hpf; Mucus Light (0-Heavy); Squamous Epithelial Cells Rare /hpf (Few); White Blood Cells, Urine TNTC /hpf (0-5)
[2024-12-17 18:57] LABS: Granular Casts 0-2 /lpf (0); WBC Cast 0-2 /lpf (0)
[2024-12-17] MEDS ORDERED: CefTRIAXone Sodium 1,000 MG in NS 100 ML IV ONE (19:00)
[2024-12-17] MEDS ORDERED: CEPH500 PO (20:01)
[2024-12-17 20:45] VITALS: BP 123/82
== END 2024-12-17 20:46 | disposition home or self-care (01) ==
LOC: ER 17:08
PROVIDERS: Student in an Organized Health Care Education/Training Program
DX: N30.00 Acute cystitis without hematuria (principal); R10.32 Left lower quadrant pain; E03.9 Hypothyroidism, unspecified; F43.10 Post-traumatic stress disorder, unspecified; Z93.6 Other artificial openings of urinary tract status; Z79.82 Long term (current) use of aspirin; Z79.899 Other long term (current) drug therapy
CPT/HCPCS: 74177; 80053; 81001; 83690; 85025; 87086; 96374-59; 96375; 99284-25; J0696; J1885; J2765; J7120; Q9967

== ENCOUNTER 2025-06-09 09:33 | Emergency (ER) | payer OTHER ==
[~2025-06-09] VITALS: Ht 170.2 cm; Wt 105.7 kg
[~2025-06-09 09:33] MED LIST changes: +CYCL10; +DIAZ2 PO; +Methocarbamol750 MG PO; +Norco 10-325 T1 EACH PO
[2025-06-09] MEDS ORDERED: HYDROmorphone HCl/Pf 1MG SYR IV ONE ×2 (10:10→12:30)
[2025-06-09] MEDS ORDERED: Ondansetron HCl 2 MG / ML 2ML Vial IV ONE (10:10)
[2025-06-09] MEDS ORDERED: NS 1,000 ML IV SCH ×3 (10:10→15:40)
[2025-06-09 10:33] LABS: BASOPHILS ABSOLUTE AUTO 0.02 K/mm3 (0.00-0.23); BASOPHILS PERCENT AUTO 0 % (0-2); EOSINOPHILS ABSOLUTE AUTO 0.04 K/mm3 (0.00-0.68); EOSINOPHILS PERCENT AUTO 0 % (0-6); Hematocrit 35.9 % (37.0-53.0); Hemoglobin 11.2 g/dL (13.5-17.5); IMMATURE GRAN ABSOLUTE AUTO 0.05 K/mm3 (0.00-0.10); IMMATURE GRAN PERCENT AUTO 1 % (0-1); LYMPHOCYTES ABSOLUTE AUTO 0.45 K/mm3 (0.84-5.20); LYMPHOCYTES PERCENT AUTO 4 % (21-46); MONOCYTES ABSOLUTE AUTO 0.51 K/mm3 (0.16-1.47); MONOCYTES PERCENT AUTO 5 % (4-13); Mean Corpuscular HGB Conc 31.2 g/dL (31.5-36.5); Mean Corpuscular Volume 94 fL (80-100); NEUTROPHILS ABSOLUTE AUTO 9.97 K/mm3 (1.96-9.15); NEUTROPHILS PERCENT AUTO 90 % (41-73); NRBC ABSOLUTE 0.00 K/mm3 (0.00-0.02); NRBC Auto 0.0 /100 WBC (0.0-0.2); Platelet Count 357 K/mm3 (150-400); RDW Coefficient Variation 13.8 % (11.7-14.2); RDW Standard Deviation 46.5 fL (35.1-46.3)
[2025-06-09 10:44] LABS: Alanine Aminotransfer (ALT/SGP 11.0 U/L (12-78); Albumin, Blood 2.5 g/dL (3.4-5.0); Albumin/Globulin Ratio 0.5 (0.8-1.8); Anion Gap 13.0 mmol/L (3-11); Aspartate Aminotrans (AST/SGOT 13.0 U/L (12-37); Bilirubin, Total 0.4 mg/dL (0.1-1.0); Blood Urea Nitrogen 26.0 mg/dL (8-24); CO2, Blood 17.0 mmol/L (21-32); Calcium, Blood 9.0 mg/dL (8.5-10.1); Chloride, Blood 106.0 mmol/L (98-108); Creatinine, Blood 2.08 mg/dL (0.60-1.20); Globulin, Blood 5.5 g/dL (2.2-4.0); Glucose, Blood 170.0 mg/dL (70-99); Potassium, Blood 3.9 mmol/L (3.5-5.5); Sodium, Blood 132.0 mmol/L (136-145); Total Protein, Blood 8.0 g/dL (6.4-8.2)
[2025-06-09 15:57] LABS: Campylobacter Sp Not Detected (NOT DETECT); E. Coli O157 Not Detected (NOT DETECT); Enteroaggregative E. coli-EAEC Not Detected (NOT DETECT); Enteropathogenic E. coli-EPEC Not Detected (NOT DETECT); Enterotoxigenic E. coli-ETEC Not Detected (NOT DETECT); Salmonella Sp Not Detected (NOT DETECT); Shiga Toxin-prod E. coli-STEC Not Detected (NOT DETECT); Shigella/Enteroin E. coli-EIEC Not Detected (NOT DETECT); Vibrio Sp Not Detected (NOT DETECT)
[2025-06-09] MEDS ORDERED: OLANZAPINE2.5 M1 PO (16:13)
[2025-06-09 16:45] VITALS: BP 120/74
[2025-06-17] MEDS ORDERED: AMOCLA875 PO (13:21)
[2025-06-17] MEDS ORDERED: CEFD300 PO (13:21)
== END 2025-06-09 16:51 | disposition home or self-care (01) ==
LOC: ER 09:33
PROVIDERS: Student in an Organized Health Care Education/Training Program
DX: K52.9 Noninfective gastroenteritis and colitis, unspecified (principal); Z79.899 Other long term (current) drug therapy; Z79.2 Long term (current) use of antibiotics; M19.90 Unspecified osteoarthritis, unspecified site; F43.10 Post-traumatic stress disorder, unspecified
CPT/HCPCS: 74177; 80053; 83690; 85025; 87507; 93005; 93010; 96361; 96374-59; 96375; 96376; 99285-25; A9270; J1171; J2405; J7030; Q9967

== ENCOUNTER 2025-06-11 09:53 | Emergency (ER) | payer OTHER ==
[~2025-06-11] VITALS: Ht 170.2 cm; Wt 103.0 kg
[~2025-06-11 09:53] MED LIST changes: +OLANZAPINE2.5 M1 PO
[2025-06-11 10:33] LABS: BASOPHILS ABSOLUTE AUTO 0.01 K/mm3 (0.00-0.23); BASOPHILS PERCENT AUTO 0 % (0-2); EOSINOPHILS ABSOLUTE AUTO 0.05 K/mm3 (0.00-0.68); EOSINOPHILS PERCENT AUTO 1 % (0-6); Hematocrit 33.8 % (37.0-53.0); Hemoglobin 10.7 g/dL (13.5-17.5); IMMATURE GRAN ABSOLUTE AUTO 0.02 K/mm3 (0.00-0.10); IMMATURE GRAN PERCENT AUTO 0 % (0-1); LYMPHOCYTES ABSOLUTE AUTO 0.56 K/mm3 (0.84-5.20); LYMPHOCYTES PERCENT AUTO 10 % (21-46); MONOCYTES ABSOLUTE AUTO 0.44 K/mm3 (0.16-1.47); MONOCYTES PERCENT AUTO 8 % (4-13); Mean Corpuscular HGB Conc 31.7 g/dL (31.5-36.5); Mean Corpuscular Volume 92 fL (80-100); NEUTROPHILS ABSOLUTE AUTO 4.45 K/mm3 (1.96-9.15); NEUTROPHILS PERCENT AUTO 80 % (41-73); NRBC ABSOLUTE 0.00 K/mm3 (0.00-0.02); NRBC Auto 0.0 /100 WBC (0.0-0.2); Platelet Count 427 K/mm3 (150-400); RDW Coefficient Variation 14.2 % (11.7-14.2); RDW Standard Deviation 47.8 fL (35.1-46.3)
[2025-06-11] MEDS ORDERED: Ondansetron HCl 2 MG / ML 2ML Vial IV ONE (10:50)
[2025-06-11 10:52] LABS: Prothrombin Time Results 13.2 Sec (9.7-11.5)
[2025-06-11 11:19] LABS: Alanine Aminotransfer (ALT/SGP 13.0 U/L (12-78); Albumin, Blood 2.7 g/dL (3.4-5.0); Albumin/Globulin Ratio 0.6 (0.8-1.8); Anion Gap 10.0 mmol/L (3-11); Aspartate Aminotrans (AST/SGOT 10.0 U/L (12-37); Bilirubin, Total 0.3 mg/dL (0.1-1.0); Blood Urea Nitrogen 26.0 mg/dL (8-24); CO2, Blood 21.0 mmol/L (21-32); Calcium, Blood 9.4 mg/dL (8.5-10.1); Chloride, Blood 106.0 mmol/L (98-108); Creatinine, Blood 2.34 mg/dL (0.60-1.20); Globulin, Blood 4.9 g/dL (2.2-4.0); Glucose, Blood 162.0 mg/dL (70-99); Potassium, Blood 3.2 mmol/L (3.5-5.5); Sodium, Blood 134.0 mmol/L (136-145); Total Protein, Blood 7.6 g/dL (6.4-8.2)
[2025-06-11 13:36] LABS: Source, Urine Foley catheter
[2025-06-11 13:39] LABS: Bilirubin, Urine Neg (Neg); Color, Urine Yellow (P-Yellow); Glucose Qualitative, Urine Neg (Neg); Ketones, Urine Neg (Neg); Leukocyte Esterase, Urine 3+ (Neg); Protein, Urine 3+ (Neg); Specific Gravity, Urine 1.015 (1.003-1.022); Urobilinogen, Urine NORM (Normal)
[2025-06-11 14:40] LABS: White Blood Cells, Urine TNTC /hpf (0-5)
[2025-06-11 14:45] VITALS: BP 122/78
[2025-06-11] MEDS ORDERED: BACTRIM DS TAB1 EAC1 PO (14:54)
[2025-06-11] MEDS ORDERED: Trimethoprim/Sulfamethoxazole DS Tab PO ONE (14:55)
[2025-06-17] MEDS ORDERED: AMOCLA875 PO (13:21)
[2025-06-17] MEDS ORDERED: CEFD300 PO (13:21)
== END 2025-06-11 15:56 | disposition home or self-care (01) ==
LOC: ER 09:53
PROVIDERS: Student in an Organized Health Care Education/Training Program
DX: N30.00 Acute cystitis without hematuria (principal); R19.7 Diarrhea, unspecified; E87.6 Hypokalemia; R79.89 Other specified abnormal findings of blood chemistry; N18.30 Chronic kidney disease, stage 3 unspecified; E03.9 Hypothyroidism, unspecified; J44.9 Chronic obstructive pulmonary disease, unspecified; F25.9 Schizoaffective disorder, unspecified; Z79.899 Other long term (current) drug therapy; Z79.82 Long term (current) use of aspirin; Z96.0 Presence of urogenital implants
CPT/HCPCS: 80053; 81001; 85025; 85610; 85730; 86850; 86900; 86901; 87077; 87086; 87186; 93005; 93010; 96361; 96374; 99284-25; A9270; J2405; J7120

== ENCOUNTER 2025-11-25 17:50 | Emergency (ER) | payer OTHER ==
[~2025-11-25] VITALS: Ht 172.7 cm; Wt 102.1 kg
[~2025-11-25 17:50] MED LIST changes: +AMOCLA875 PO; +BACTRIM DS TAB1 EAC1 PO; +CEFD300 PO
[2025-11-25 18:01] VITALS: BP 102/79
== END 2025-11-25 19:55 | disposition left against medical advice (07) ==
LOC: ER 17:50
DX: M54.50 Low back pain, unspecified (principal); G89.29 Other chronic pain; Z53.29 Procedure and treatment not carried out because of patient's decision for other reasons
CPT/HCPCS: 99282

== ENCOUNTER 2025-11-28 10:48 | Emergency (ER) | payer OTHER ==
[~2025-11-28] VITALS: Ht 172.7 cm; Wt 100.7 kg
[2025-11-28] MEDS ORDERED: HYDROmorphone HCl/Pf 1MG SYR IV ONE (11:25)
[2025-11-28] MEDS ORDERED: NS 1,000 ML IV SCH (11:25)
[2025-11-28 12:41] LABS: Source, Urine Suprapubic Cath
[2025-11-28 12:46] VITALS: BP 121/86
[2025-11-28 13:08] LABS: Bilirubin, Urine Neg (Neg); Color, Urine Red (P-Yellow); Glucose Qualitative, Urine Neg (Neg); Ketones, Urine Neg (Neg); Leukocyte Esterase, Urine Neg (Neg); Protein, Urine 4+ (Neg); Specific Gravity, Urine 1.015 (1.003-1.022); Urobilinogen, Urine NORM (Normal)
[2025-11-28 13:24] LABS: Red Blood Cells, Urine TNTC /hpf (0-2); White Blood Cells, Urine 0-2 /hpf (0-5)
== END 2025-11-28 12:47 | disposition home or self-care (01) ==
LOC: ER 10:48
PROVIDERS: Emergency Medicine
DX: T83.091A Other mechanical complication of indwelling urethral catheter, initial encounter (principal); C41.9 Malignant neoplasm of bone and articular cartilage, unspecified; E03.9 Hypothyroidism, unspecified; J44.9 Chronic obstructive pulmonary disease, unspecified; G47.33 Obstructive sleep apnea (adult) (pediatric); M19.90 Unspecified osteoarthritis, unspecified site; N18.30 Chronic kidney disease, stage 3 unspecified; Z79.899 Other long term (current) drug therapy
CPT/HCPCS: 51705; 81001; 96374; 99283-25; C2627; J1171; J7030